=== PATIENT | female | born 1980 | race Caucasian/White ===

== ENCOUNTER 2025-05-18 15:46 | Emergency (ER) | payer OTHER ==
[~2025-05-18] VITALS: Ht 154.9 cm; Wt 83.0 kg
[~2025-05-18 15:46] MED LIST: LEVO-65 MT
[2025-05-18 16:09] VITALS: O2SAT 97
[2025-05-18 16:51] LABS: BASOPHILS % 0.6 % (0.0-2.0); EOSINOPHILS % 1.7 % (0.0-5.0); HEMATOCRIT. 38.1 % (36.0-48.0); HEMOGLOBIN. 12.9 g/dL (12.0-16.0); LYMPHOCYTES % 19.4 % (20.0-50.0); MEAN CORPUSCULAR HEMOGLOBIN 29.4 pg (28.0-32.0); MEAN CORPUSCULAR HGB CONC 33.9 g/dL (31.0-37.0); MEAN CORPUSCULAR VOLUME 86.7 fL (81.0-99.0); MEAN PLATELET VOLUME 8.6 fl (7.4-10.4); MONOCYTES % 10.6 % (2.0-8.0); NEUTROPHILS % 67.7 % (40.0-76.0); PLATELET 350 x1000/uL (130-400); RED CELL DISTRIBUTION WIDTH 13.9 % (11.6-14.6); WHITE BLOOD COUNT 8.3 x1000/uL (4.5-11.0)
[2025-05-18 16:58] LABS: CHLORIDE 101 mEq/L (98-107); POTASSIUM 3.8 mEq/L (3.5-5.1); SODIUM 135 mEq/L (136-145)
[2025-05-18 16:59] LABS: CARBON DIOXIDE 27 mEq/L (21-32)
[2025-05-18 17:03] LABS: INR 0.9; PROTHROMBIN TIME 10.2 sec (9.6-11.0)
[2025-05-18 17:04] LABS: CREATININE 0.9 mg/dL (0.6-1.0); GLUCOSE 121 mg/dL (70-105); UREA NITROGEN BLOOD 7 mg/dL (9-23)
[2025-05-18 17:13] LABS: CLARITY URINE CLEAR (CLEAR); COLOR URINE YELLOW (YELLOW); GLUCOSE URINE NEGATIVE (NEGATIVE); KETONES URINE NEGATIVE (NEGATIVE); LEUKOCYTE ESTERASE URINE NEGATIVE (NEGATIVE); NITRITE URINE NEGATIVE (NEGATIVE); OCCULT BLOOD URINE NEGATIVE (NEGATIVE); PH URINE 7.5 (4.5-8.0); PROTEIN URINE NEGATIVE (NEGATIVE); UROBILINOGEN URINE 0.2 E.U./dL (0.2-1.0)
[2025-05-18 17:42] LABS: HCG SCREEN NEGATIVE
[2025-05-18 17:47] LABS: TROPONIN I HIGH SENSITIVITY < 4 ng/L (3.0-34)
[2025-05-18 18:13] VITALS: BP 128/79; PULSE 104; RESP 20; O2SAT 100
[2025-05-18 18:24] LABS: INFLUENZA TYPE A Presumptive Negative (Pres. Neg.)
[2025-05-18 18:25] LABS: INFLUENZA TYPE B Presumptive Negative (Pres. Neg.)
[2025-05-18] MEDS: ACETAMINOPHEN 325MG TABLET PO ONE (18:37)
[2025-05-18 19:01] LABS: D-DIMER 0.52 mg/L FEU (<0.50)
[2025-05-18] MEDS ORDERED: IBUP-2028 MT (19:26)
[2025-05-18] MEDS ORDERED: BENZ100C86 MT (19:26)
[2025-05-18 19:28] VITALS: TEMP 37.3
== END 2025-05-18 20:03 | disposition home or self-care (01) ==
LOC: ER 15:46
DX: U07.1 COVID-19 (principal); R50.9 Fever, unspecified; Z79.899 Other long term (current) drug therapy
CPT/HCPCS: 36415; 71046; 80048; 81003; 81025; 84443; 84484; 84703; 85025; 85379; 87070; 87426; 87430; 87804; 99284